=== PATIENT | male | born 1995 | race Caucasian/White ===

== ENCOUNTER → 2018-05-12 12:45 | Outpatient (CLI) | payer OTHER, MEDICAID, SELFPAY ==
[2018-05-12 15:38] LABS: Influenza A and B by PCR Rapid Negative (Negative)
== END ==
PROVIDERS: Visit Provider Physician Assistant
DX: J11.1 Influenza due to unidentified influenza virus with other respiratory manifestations (principal)
CPT/HCPCS: 87400